=== PATIENT | male | born 1940 | race Asian ===

== ENCOUNTER 2017-03-10 07:31 | Day surgery (SDC) | payer OTHER, BC ==
[~2017-03-10] VITALS: Ht 170.2 cm; Wt 67.6 kg
[2017-03-10] MEDS: MEPERIDINE HCL/PF 100 MG/ML AMP ONE ×2 (08:56→08:58)
[2017-03-10] MEDS: MIDAZOLAM HCL 5 MG/5 ML VIAL ONE ×4 (08:56→09:11)
[2017-03-10 13:07] VITALS: BP 129/76; PULSE 60; RESP 16
== END 2017-03-10 10:30 | disposition home or self-care (01) ==
LOC: SDS 07:31
PROVIDERS: ATTEND Internal Medicine Gastroenterology
DX: Z09 Encounter for follow-up examination after completed treatment for conditions other than malignant neoplasm (principal); Z86.010 Personal history of colon polyps; D12.2 Benign neoplasm of ascending colon; D12.3 Benign neoplasm of transverse colon; D12.4 Benign neoplasm of descending colon; K21.0 Gastro-esophageal reflux disease with esophagitis; K22.70 Barrett's esophagus without dysplasia; I10 Essential (primary) hypertension; N40.0 Benign prostatic hyperplasia without lower urinary tract symptoms; E11.9 Type 2 diabetes mellitus without complications; R63.4 Abnormal weight loss; K44.9 Diaphragmatic hernia without obstruction or gangrene; K64.8 Other hemorrhoids; Z87.891 Personal history of nicotine dependence; I50.9 Heart failure, unspecified
CPT/HCPCS: 36415; 43239; 45380; 45385; 87081; 88305; 88312; 88313; J2175; J2250; J7030